=== PATIENT | male | born 1995 | race American Indian/Alaskan Native ===

== ENCOUNTER 2020-01-25 09:30 | Emergency (ER) | payer MEDICAID, OTHER ==
[2020-01-25] MEDS ORDERED: Sodium Chloride 0.9% 1,000 ML IV ONE (09:45)
[2020-01-25] MEDS ORDERED: Iopamidol 612 MG/ML 100 ML Bottle IVPUSH ONE (09:46)
--- NOTE | 2020-01-25 10:33 | EDM.PDOC ---
ED HPI GENERAL MEDICAL PROBLEM - General Time Seen by Provider: 01/25/20 10:15 Source of Information: Reports: Patient, EMS, EMS Notes Reviewed, RN, RN Notes Reviewed History Limitations: Reports: No Limitations - History of Present Illness INITIAL COMMENTS - FREE TEXT/NARRATIVE: Patient presents to ER per [place] ambulance service from [facility]. Patient states he began having right lower quadrant pain on . States at that time he also had a fever of 102. Describes the pain as sharp and stabbing, aching around to the right side of the back. Denies any urinary symptoms. Denies vomiting or diarrhea, states he has had some slight nausea from time to time. Pain with walking, laying down, movement in general. Patient has taken Aleve for the pain. Again states he had a fever , but has not had a fever since then but states he has had the chills. Patient states yesterday his abdomen began feeling more hard. Denies any recent illness cough or congestion. Patient states he did call the hospital over the weekend and they instructed him to take MiraLAX. He states he did use MiraLAX and has had 2 bowel movements since, no relief of pain. Decreased appetite, and nothing to eat today. States he has been trying to take fluids in. Patient rates pain 6- 7/10. Denies any drug or alcohol use. States he does still have his appendix. Onset: Gradual Onset Date: 01/21/20 Bilateral Lower Abdomen Pain Score (Numeric/FACES): 7 - Related Data Allergies Allergy/AdvReac Type Severity Reaction Status Date / Time No Known Allergies Allergy Verified 01/25/20 10:41 Home Meds: Home Meds . [No Known Home Meds] 01/25/20 [History] ED ROS GENERAL - Review of Systems Review Of Systems: Comprehensive ROS is negative, except as noted in HPI. ED EXAM, GI/ABD - Physical Exam Exam: See Below Exam Limited By: No Limitations General Appearance: Alert, WD/WN, Moderate Distress Eyes: Bilateral: Normal Appearance, EOMI Ears: Normal External Exam, Hearing Grossly Normal Nose: Normal Inspection Throat/Mouth: Normal Inspection, Normal Voice, No Airway Compromise Head: Atraumatic, Normocephalic Neck: Normal Inspection, Supple, Non-Tender, Full Range of Motion Respiratory/Chest: No Respiratory Distress, Lungs Clear, Normal Breath Sounds, No Accessory Muscle Use, Chest Non-Tender Cardiovascular: Normal Peripheral Pulses, Regular Rate, Rhythm, No Edema, No Gallop, No JVD, No Murmur, No Rub GI/Abdominal Exam: Normal Bowel Sounds, Guarding, Rigid, Rebound, Tender (RLQ) (Male) Exam: Deferred Rectal (Males) Exam: Deferred Back Exam: Normal Inspection, Full Range of Motion, CVA Tenderness (R) Extremities: Normal Inspection, Normal Range of Motion, Non-Tender, Normal Capillary Refill, No Pedal Edema Neurological: Alert, Oriented, CN II-XII Intact, Normal Cognition, Normal Gait, Normal Reflexes, No Motor/Sensory Deficits Psychiatric: Normal Affect, Normal Mood Skin Exam: Warm, Dry, Intact, Normal Color, No Rash Lymphatic: No Adenopathy Course - Vital Signs Last Recorded V/S: Last Vital Signs Temp 97.6 F 01/25/20 11:30 Pulse 71 01/25/20 11:30 Resp 18 01/25/20 11:30 BP 110/56 L 01/25/20 11:30 Pulse Ox 100 01/25/20 11:30 - Orders/Labs/Meds Orders: Active Orders 24 hr Category Date Time Status CULTURE BLOOD [BC] Stat Lab 01/25/20 10:28 Received CULTURE BLOOD [BC] Stat Lab 01/25/20 10:56 Received fentaNYL [Sublimaze] Med 01/25/20 12:18 Once 50 mcg IVPUSH ONETIME ONE Blood Culture x2 Reflex Set [OM.PC] Stat Oth 01/25/20 09:45 Ordered Medication Orders Fentanyl (Sublimaze) 50 mcg IVPUSH ONETIME ONE Stop: 01/25/20 12:19 Labs: Laboratory Tests 01/25/20 01/25/20 01/25/20 Range/Units 10:28 10:28 10:28 WBC 29.5 H* (5.0-10.0) 10^3/uL RBC 4.37 L (4.6-6.2) 10^6/uL Hgb 13.0 L D (14.0-18.0) g/dL Hct 36.1 L (40.0-54.0) % MCV 82.6 D (80-100) fL MCH 29.7 (27.0-34.0) pg MCHC 36.0 H (33.0-35.0) g/dL Plt Count 282 (150-450) 10^3/uL Neut % (Auto) 89.9 H (42.2-75.2) % Lymph % (Auto) 3.7 L (20.5-50.1) % [place] % (Auto) 6.3 (2-8) % Eos % (Auto) 0.0 L (1.0-3.0) % Baso % (Auto) 0.1 (0.0-1.0) % Add Manual Diff Yes Neutrophils % (Manual) 64 (42-75) % Band Neutrophils % 30 % Lymphocytes % (Manual) 1 L (20-50) % Monocytes % (Manual) 5 (2-8) % Sodium 136 (136-145) mmol/L Potassium 3.4 L (3.5-5.1) mmol/L Chloride 99 (98-107) mmol/L Carbon Dioxide 27 (21-32) mmol/L Anion Gap 13.4 H (7-13) mEq/L BUN 18 (7-18) mg/dL Creatinine 1.06 (0.70-1.30) mg/dL Est Cr Clr Drug Dosing 96.78 mL/min Estimated GFR (MDRD) > 60 BUN/Creatinine Ratio 17.0 (No establ ref range) Glucose 107 H (74-99) mg/dL Lactic Acid 1.5 (0.4-2.0) mmol/L Calcium 8.4 L (8.5-10.1) mg/dL Total Bilirubin 1.3 H (0.2-1.0) mg/dL AST 17 (15-37) U/L ALT 30 (16-63) U/L Alkaline Phosphatase 121 H (46-116) U/L Total Protein 7.1 (6.4-8.2) g/dL Albumin 3.1 L (3.4-5.0) g/dL Globulin 4.0 Albumin/Globulin Ratio 0.78 Amylase 26 (25-115) U/L Lipase 60 L (73-393) U/L Urine Color (YELLOW) Urine Appearance (CLEAR) Urine pH (5.0-9.0) Ur Specific Young (1.005-1.030) Urine Protein (NEGATIVE) Urine Glucose (UA) (NEGATIVE) Urine Ketones (NEGATIVE) Urine Occult Blood (NEGATIVE) Urine Nitrite (NEGATIVE) Urine Bilirubin (NEGATIVE) Urine Urobilinogen (0.2-1.0) mg/dL Ur Leukocyte Esterase (NEGATIVE) Urine RBC /HPF Urine WBC (0-5/HPF) /HPF Ur Epithelial Cells (NOT SEEN) /HPF Urine Mucus (NOT SEEN) /LPF Urine Opiates Screen (NEGATIVE) Ur Oxycodone Screen (NEGATIVE) Urine Methadone Screen (NEGATIVE) Ur Barbiturates Screen (NEGATIVE) U Tricyclic Antidepress (NEGATIVE) Ur Phencyclidine Scrn (NEGATIVE) Ur Amphetamine Screen (NEGATIVE) U Methamphetamines Scrn (NEGATIVE) Urine MDMA Screen (NEGATIVE) U Benzodiazepines Scrn (NEGATIVE) Urine Cocaine Screen (NEGATIVE) U Marijuana (THC) Screen (NEGATIVE) 01/25/20 01/25/20 Range/Units 10:49 10:49 WBC (5.0-10.0) 10^3/uL RBC (4.6-6.2) 10^6/uL Hgb (14.0-18.0) g/dL Hct (40.0-54.0) % MCV (80-100) fL MCH (27.0-34.0) pg MCHC (33.0-35.0) g/dL Plt Count (150-450) 10^3/uL Neut % (Auto) (42.2-75.2) % Lymph % (Auto) (20.5-50.1) % [place] % (Auto) (2-8) % Eos % (Auto) (1.0-3.0) % Baso % (Auto) (0.0-1.0) % Add Manual Diff Neutrophils % (Manual) (42-75) % Band Neutrophils % % Lymphocytes % (Manual) (20-50) % Monocytes % (Manual) (2-8) % Sodium (136-145) mmol/L Potassium (3.5-5.1) mmol/L Chloride (98-107) mmol/L Carbon Dioxide (21-32) mmol/L Anion Gap (7-13) mEq/L BUN (7-18) mg/dL Creatinine (0.70-1.30) mg/dL Est Cr Clr Drug Dosing mL/min Estimated GFR (MDRD) BUN/Creatinine Ratio (No establ ref range) Glucose (74-99) mg/dL Lactic Acid (0.4-2.0) mmol/L Calcium (8.5-10.1) mg/dL Total Bilirubin (0.2-1.0) mg/dL AST (15-37) U/L ALT (16-63) U/L Alkaline Phosphatase (46-116) U/L Total Protein (6.4-8.2) g/dL Albumin (3.4-5.0) g/dL Globulin Albumin/Globulin Ratio Amylase (25-115) U/L Lipase (73-393) U/L Urine Color Dark yellow (YELLOW) Urine Appearance Clear (CLEAR) Urine pH 6.0 (5.0-9.0) Ur Specific Young 1.020 (1.005-1.030) Urine Protein Negative (NEGATIVE) Urine Glucose (UA) Negative (NEGATIVE) Urine Ketones 15 H (NEGATIVE) Urine Occult Blood Trace-intact H (NEGATIVE) Urine Nitrite Negative (NEGATIVE) Urine Bilirubin Negative (NEGATIVE) Urine Urobilinogen 4.0 H (0.2-1.0) mg/dL Ur Leukocyte Esterase Negative (NEGATIVE) Urine RBC 0-5 /HPF Urine WBC 0-5 (0-5/HPF) /HPF Ur Epithelial Cells Few (NOT SEEN) /HPF Urine Mucus Few H (NOT SEEN) /LPF Urine Opiates Screen Negative (NEGATIVE) Ur Oxycodone Screen Negative (NEGATIVE) Urine Methadone Screen Negative (NEGATIVE) Ur Barbiturates Screen Negative (NEGATIVE) U Tricyclic Antidepress Negative (NEGATIVE) Ur Phencyclidine Scrn Negative (NEGATIVE) Ur Amphetamine Screen Negative (NEGATIVE) U Methamphetamines Scrn Negative (NEGATIVE) Urine MDMA Screen Negative (NEGATIVE) U Benzodiazepines Scrn Negative (NEGATIVE) Urine Cocaine Screen Negative (NEGATIVE) U Marijuana (THC) Screen Positive H (NEGATIVE) Meds: Medications Generic Name Dose Route Start Last Admin Trade Name Freq PRN Reason Stop Dose Admin Fentanyl 50 mcg 01/25/20 12:18 Sublimaze IVPUSH 01/25/20 12:19 ONETIME ONE Discontinued Medications Generic Name Dose Route Start Last Admin Trade Name Freq PRN Reason Stop Dose Admin Fentanyl 50 mcg 01/25/20 11:17 01/25/20 11:26 Sublimaze IVPUSH 01/25/20 11:18 50 mcg ONETIME ONE Administration Sodium Chloride 1,000 mls @ 999 mls/hr 01/25/20 09:45 01/25/20 10:42 Normal Saline IV 01/25/20 10:45 999 mls/hr .BOLUS ONE Administration Piperacillin Sod/Tazobactam 100 mls @ 200 mls/hr 01/25/20 11:28 01/25/20 11:36 Sod 3.375 gm/ Sodium Chloride IV 01/25/20 11:57 200 mls/hr ONETIME ONE Administration Iopamidol 100 ml 01/25/20 09:46 01/25/20 10:39 Isovue-300 (61%) IVPUSH 01/25/20 09:47 75 ml ONETIME ONE Administration - Re-Assessments/Exams Free Text/Narrative Re-Assessment/Exam: 01/25/20 12:05 Discussed patient case with Dr. Hardy who agreed to accept the patient for transfer to [facility]. Departure - Departure Time of Disposition: 12:45 Disposition: DC/Tfer to [facility] 02 Condition: Fair Clinical Impression: Enterocolitis Abdominal pain Qualifiers: Abdominal location: right lower quadrant Qualified Code(s): R10.31 - Right lower quadrant pain Appendicitis Qualifiers: Appendicitis type: acute appendicitis Acute appendicitis type: unspecified acute appendicitis type Qualified Code(s): K35.80 - Unspecified acute appendicitis - Discharge Information *PRESCRIPTION DRUG MONITORING PROGRAM REVIEWED*: No *COPY OF PRESCRIPTION DRUG MONITORING REPORT IN PATIENT TOBIN: No Forms: ED Department Discharge, Interfacility Transfer [facility] Sepsis Event Note (ED) - Focused Exam Vital Signs: Vital Signs Temp Pulse Resp BP Pulse Ox 01/25/20 11:30 97.6 F 71 18 110/56 L 100 01/25/20 10:18 98.2 F 91 18 113/59 L 100 - My Orders Last 24 Hours: My Active Orders 01/25/20 09:45 Blood Culture x2 Reflex Set [OM.PC] Stat 01/25/20 10:28 CULTURE BLOOD [BC] Stat 01/25/20 10:56 CULTURE BLOOD [BC] Stat 01/25/20 12:18 fentaNYL [Sublimaze] 50 mcg IVPUSH ONETIME ONE - Assessment/Plan Last 24 Hours: My Active Orders 01/25/20 09:45 Blood Culture x2 Reflex Set [OM.PC] Stat 01/25/20 10:28 CULTURE BLOOD [BC] Stat 01/25/20 10:56 CULTURE BLOOD [BC] Stat 01/25/20 12:18 fentaNYL [Sublimaze] 50 mcg IVPUSH ONETIME ONE
[2020-01-25] MEDS ORDERED: fentaNYL 100 MCG/2 ML SDV IVPUSH ONE ×2 (11:17→12:18)
[2020-01-25 11:28] LABS: ANION GAP 13.4 mEq/L (7-13); CHLORIDE,CL 99 mmol/L (98-107); SODIUM,NA 136 mmol/L (136-145)
[2020-01-25] MEDS ORDERED: Piperacillin/Tazobactam 3.375 GM in Sodium Chloride 0.9% 100 ML IV ONE (11:28)
--- NOTE | 2020-01-25 11:46 | CT ---
PROCEDURE INFORMATION: Exam: CT Abdomen And Pelvis With Contrast Exam date and time: 01/25/2020 10:33 AM Age: 24 years old Clinical indication: Abdominal pain; Localized; Right lower quadrant (rlq); Additional info: R/O appy TECHNIQUE: Imaging protocol: Computed tomography of the abdomen and pelvis with intravenous contrast. Radiation optimization: All CT scans at this facility use at least one of these dose optimization techniques: automated exposure control; mA and/or kV adjustment per patient size (includes targeted exams where dose is matched to clinical indication); or iterative reconstruction. Contrast material: ISOVUE 300; Contrast volume: 75 ml; Contrast route: INTRAVENOUS (IV); COMPARISON: CT Chest Abdomen Pelvis wo Cont 04/06/2014 10:36 PM FINDINGS: Lungs: Included lung bases are clear. Liver: Normal. No mass. Gallbladder and bile ducts: The gallbladder is relatively contracted. No biliary ductal dilatation is seen. Pancreas: Normal. No ductal dilation. Spleen: Normal. No splenomegaly. Adrenals: Normal. No mass. Kidneys and ureters: Normal. No hydronephrosis. Stomach and bowel: There are multiple fluid-filled small bowel loops in the left abdomen which are not dilated. Fluid mildly distends the right colon. Findings may reflect a mild enterocolitis. No bowel obstruction. Appendix: The distal appendix is slightly dilated at 7 mm, and the appendiceal tip is obscured by adjacent trace fluid. However, there is no fat stranding or fluid along the longer extent of the appendix more proximally. It is difficult to completely exclude early appendicitis, but findings are not definitive. Intraperitoneal space: The descending duodenum is mildly distended with air-fluid level, with wall thickening, adjacent fat stranding, and small amount of adjacent free fluid. This fluid and fat stranding obliterates the fat plane between the duodenum and abdominal aorta. There also adjacent small periaortic lymph nodes which are likely reactive. Overall, findings suggest peptic ulcer disease. While adjacent free fluid could reflect a perforated ulcer, there is no free air to confirm a perforated viscus. Additional small amount of fluid in Almazan's pouch and the right pericolic gutter, as well as the right posterosuperior pelvis at the L5-S1 level. Vasculature: Unremarkable. No abdominal aortic aneurysm. Lymph nodes: See "Intraperitoneal space" finding. Bladder: Unremarkable as visualized. Reproductive: Unremarkable as visualized. Bones/joints: No acute osseous abnormality. Prior left sacral fracture has healed. Stable 7 mm sclerotic lesion in the left ilium, likely a bone island Soft tissues: Unremarkable. IMPRESSION: 1. Wall thickening and mild distension of the duodenum, with adjacent fluid and fat stranding which obliterates the fat plane between the duodenum and abdominal aorta, with probable small adjacent reactive lymph nodes. Findings suggest peptic ulcer disease. Free fluid could reflect a perforated ulcer, but there is no free air to confirm a perforated viscus. Additional small amount of presumed associated fluid in Almazan's pouch, the right paracolic gutter, and right posterosuperior pelvis. No evidence of drainable abscess. 2. Findings suggesting mild enterocolitis. 3. Slightly dilated distal appendix at 7 mm, with appendiceal tip partially obscured by adjacent trace fluid. However, the more proximal appendix is normal in appearance. Although it is difficult to exclude early appendicitis, particularly distal tip appendicitis, findings are not definitive for appendicitis.
[2020-01-25] MEDS ORDERED: Lactated Ringers 1,000 ML IV ONE (12:38)
== END 2020-01-25 13:05 ==
LOC: DL.ED 09:30
DX: K52.9 Noninfective gastroenteritis and colitis, unspecified (principal); K35.80 Unspecified acute appendicitis
CPT/HCPCS: 36415; 74177; 80053; 80305; 81001; 82150; 83605; 83690; 85025; 87040; 96361; 96365; 96375; 96376; 99285; J2543; J3010; J7030; J7050; J7120; Q9967; 99284

== ENCOUNTER 2020-05-10 23:44 | Emergency (ER) | payer MEDICAID, OTHER ==
[2020-05-11] MEDS ORDERED: Iopamidol 612 MG/ML 100 ML Bottle IVPUSH ONE (00:08)
[2020-05-11 00:39] LABS: ANION GAP 13.5 mEq/L (7-13); CHLORIDE,CL 101 mmol/L (98-107); SODIUM,NA 138 mmol/L (136-145)
--- NOTE | 2020-05-11 02:12 | CT ---
PROCEDURE INFORMATION: Exam: CT Abdomen And Pelvis With Contrast Exam date and time: 05/11/2020 1:26 AM Age: 24 years old Clinical indication: Right lower quadrant cellulitis. Evaluate for abscess. TECHNIQUE: Imaging protocol: Computed tomography of the abdomen and pelvis with intravenous contrast. Radiation optimization: All CT scans at this facility use at least one of these dose optimization techniques: automated exposure control; mA and/or kV adjustment per patient size (includes targeted exams where dose is matched to clinical indication); or iterative reconstruction. Contrast material: ISOVUE 300; Contrast volume: 75 ml; Contrast route: INTRAVENOUS (IV); COMPARISON: CT Abdomen Pelvis w Cont 01/25/2020 10:33 AM FINDINGS: Lung bases are clear. Solid abdominal organs are unremarkable. The gallbladder is collapsed. No radiopaque gallstones or biliary ductal dilatation. Stool filled not significantly distended colon. Surgical change is present at the cecal apex and the appendix is not identified reflecting interval appendectomy. Bowel is otherwise unremarkable. The abdominal aorta is unremarkable without aneurysm or dissection. No abdominal or pelvic lymphadenopathy. The urinary bladder is largely collapsed and is otherwise unremarkable. No free intraperitoneal air or fluid. Soft tissue swelling/stranding is present in the subcutaneous fat of the right lower lateral and anterior abdominal wall. No localized fluid collection or soft tissue gas is present amongst this area. Osseous structures are intact. IMPRESSION: 1. Soft tissue swelling/stranding in the subcutaneous fat of the right abdominal wall which suggest inflammatory change/cellulitis. No fluid collection amongst this area to suggest abscess. 2. Interval appendectomy. 3. No acute intra-abdominal findings.
[2020-05-11] MEDS ORDERED: Mupirocin Oint 22 GM Tube ONE (02:20)
--- NOTE | 2020-05-11 02:20 | EDM.PDOC ---
ED HPI GENERAL MEDICAL PROBLEM - General Chief Complaint: Skin Complaint Stated Complaint: RIGHT HIP ITS SCRAPPED, INFECTED Time Seen by Provider: 05/10/20 23:55 Source of Information: Reports: Patient History Limitations: Reports: No Limitations - History of Present Illness INITIAL COMMENTS - FREE TEXT/NARRATIVE: ED ambulatory with c/o scrapping hip /abdomen on gravel while sledding this weekend. Increased redness today and more drainage from wound. No fever or chills. No hx of prior skin infections. No nausea or vomiting Treatments SUBSTANCE ABUSE COUNSELOR: Reports: NSAIDS Right Hip Pain Score (Numeric/FACES): 4 - Related Data Allergies Allergy/AdvReac Type Severity Reaction Status Date / Time No Known Allergies Allergy Verified 05/11/20 00:42 Home Meds: Home Meds . [No Known Home Meds] 01/25/20 [History] Past Medical History HEENT History: Reports: None Cardiovascular History: Reports: None Respiratory History: Reports: None Gastrointestinal History: Reports: None Genitourinary History: Reports: None Musculoskeletal History: Reports: Fracture, Other (See Below) Other Musculoskeletal History: left arm and pelvic fx Neurological History: Reports: None Psychiatric History: Reports: None Endocrine/Metabolic History: Reports: None Hematologic History: Reports: None Immunologic History: Reports: None Oncologic (Cancer) History: Reports: None Dermatologic History: Reports: None - Infectious Disease History Infectious Disease History: Reports: None - Past Surgical History Head Surgeries/Procedures: Reports: None HEENT Surgical History: Reports: Other (See Below) Other HEENT Surgeries/Procedures: jaw wired shut Social & Family History - Family History Family Medical History: No Pertinent Family History - Tobacco Use Tobacco Use Status *Q: Current Status Unknown Second Hand Smoke Exposure: No - Caffeine Use Caffeine Use: Reports: Soda - Recreational Drug Use Recreational Drug Use: No ED ROS GENERAL - Review of Systems Review Of Systems: Comprehensive ROS is negative, except as noted in HPI. ED EXAM, SKIN/RASH Exam: See Below Exam Limited By: No Limitations General Appearance: Alert, Mild Distress Eye Exam: Bilateral Eye: EOMI Ears: Normal External Exam Nose: Normal Inspection Throat/Mouth: Normal Inspection Head: Atraumatic, Normocephalic Neck: Normal Inspection Respiratory/Chest: No Respiratory Distress, Lungs Clear, Normal Breath Sounds Cardiovascular: Normal Peripheral Pulses, Regular Rate, Rhythm GI/Abdominal: Normal Bowel Sounds, Soft Extremities: Normal Inspection Neurological: Alert, Oriented, Normal Cognition Skin: Warm, Erythema, Wound/Incision (1.5cm open wound/ greenish center 15 x 10cm surrounding erythemaous area RLQ) Associated features: Warmth, Tenderness, Induration Course - Vital Signs Last Recorded V/S: Last Vital Signs Temp 97.6 F 05/11/20 02:08 Pulse 71 05/11/20 02:08 Resp 15 05/11/20 02:08 BP 116/63 05/11/20 02:08 Pulse Ox 99 05/11/20 02:08 - Orders/Labs/Meds Orders: Active Orders 24 hr Category Date Time Status CULTURE BLOOD [BC] Stat Lab 05/11/20 00:13 Received CULTURE WOUND [RM] Stat Lab 05/11/20 00:00 Received Labs: Laboratory Tests 05/11/20 05/11/20 05/11/20 Range/Units 00:13 00:13 00:13 WBC 7.9 (5.0-10.0) 10^3/uL RBC 4.20 L (4.6-6.2) 10^6/uL Hgb 12.3 L (14.0-18.0) g/dL Hct 34.8 L (40.0-54.0) % MCV 82.9 (80-100) fL MCH 29.3 (27.0-34.0) pg MCHC 35.3 H (33.0-35.0) g/dL Plt Count 281 (150-450) 10^3/uL Neut % (Auto) 66.8 (42.2-75.2) % Lymph % (Auto) 17.9 L (20.5-50.1) % [place] % (Auto) 8.0 (2-8) % Eos % (Auto) 7.2 H (1.0-3.0) % Baso % (Auto) 0.1 (0.0-1.0) % Sodium 138 (136-145) mmol/L Potassium 3.5 (3.5-5.1) mmol/L Chloride 101 (98-107) mmol/L Carbon Dioxide 27 (21-32) mmol/L Anion Gap 13.5 H (7-13) mEq/L BUN 22 H (7-18) mg/dL Creatinine 0.81 (0.70-1.30) mg/dL Est Cr Clr Drug Dosing TNP Estimated GFR (MDRD) > 60 BUN/Creatinine Ratio 27.2 (No establ ref range) Glucose 110 H (74-99) mg/dL Lactic Acid 0.6 (0.4-2.0) mmol/L Calcium 8.4 L (8.5-10.1) mg/dL Total Bilirubin 0.2 (0.2-1.0) mg/dL AST 17 (15-37) U/L ALT 37 (16-63) U/L Alkaline Phosphatase 124 H (46-116) U/L Total Protein 6.9 (6.4-8.2) g/dL Albumin 3.3 L (3.4-5.0) g/dL Globulin 3.6 Albumin/Globulin Ratio 0.92 Meds: Medications Discontinued Medications Generic Name Dose Route Start Last Admin Trade Name Freq PRN Reason Stop Dose Admin Vancomycin HCl 1,000 mg/ 250 mls @ 166.667 mls/hr 05/11/20 00:10 05/11/20 00:26 Sodium Chloride IV 05/11/20 01:39 166.667 mls/hr ONETIME ONE Administration Iopamidol 100 ml 05/11/20 00:08 05/11/20 01:42 Isovue-300 (61%) IVPUSH 05/11/20 00:09 75 ml ONETIME ONE Administration Mupirocin Confirm 05/11/20 02:20 05/11/20 02:24 Bactroban Oint Administered 05/11/20 02:21 Not Given Dose 22 gm .ROUTE .STK-MED ONE Departure - Departure Time of Disposition: 02:19 Disposition: Home, Self-Care 01 Condition: Good Clinical Impression: Cellulitis Qualifiers: Site of cellulitis: trunk Site of cellulitis of trunk: abdominal wall Qualified Code(s): L03.311 - Cellulitis of abdominal wall - Discharge Information *PRESCRIPTION DRUG MONITORING PROGRAM REVIEWED*: No *COPY OF PRESCRIPTION DRUG MONITORING REPORT IN PATIENT TOBIN: No Instructions: Cellulitis, Adult Forms: ED Department Discharge Additional Instructions: increase fluids alternate tylenol and ibuprofen every 4 hours as needed for discomfort keflex 500mg one three times daily for 10 days bactrim DS one twice daily for one week clinic Recheck . mupriocin ointment 3 times daily to wound until healed. Sepsis Event Note (ED) - Evaluation Sepsis Screening Result: No Definite Risk - Focused Exam Vital Signs: Vital Signs Temp Pulse Resp BP Pulse Ox 05/11/20 02:08 97.6 F 71 15 116/63 99 05/10/20 23:50 98.3 F 84 18 127/87 99 - My Orders Last 24 Hours: My Active Orders 05/11/20 00:00 CULTURE WOUND [RM] Stat 05/11/20 00:13 CULTURE BLOOD [BC] Stat - Assessment/Plan Last 24 Hours: My Active Orders 05/11/20 00:00 CULTURE WOUND [RM] Stat 05/11/20 00:13 CULTURE BLOOD [BC] Stat
== END 2020-05-11 02:32 | disposition home or self-care (01) ==
LOC: DL.ED 23:44
DX: L03.311 Cellulitis of abdominal wall (principal)
CPT/HCPCS: 36415; 74177; 80053; 83605; 85025; 87040; 87070; 87077; 96365; 96366; 99283; 99284-25; A9270-GY; J3370; J7050; Q9967

== ENCOUNTER 2020-11-27 07:29 | Emergency (ER) | payer OTHER, MEDICAID ==
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
[2020-11-27] MEDS ORDERED: Iopamidol 612 MG/ML 100 ML Bottle IVPUSH ONE (07:48)
[2020-11-27 08:25] LABS: ANION GAP 19.9 mEq/L (7-13); CHLORIDE,CL 107 mmol/L (98-107); SODIUM,NA 147 mmol/L (136-145)
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
== END 2020-11-27 09:26 | disposition home or self-care (01) ==
LOC: DL.ED 07:29
DX: S20.212A Contusion of left front wall of thorax, initial encounter (principal); F10.120 Alcohol abuse with intoxication, uncomplicated; Y90.7 Blood alcohol level of 200-239 mg/100 ml; V47.5XXA Car driver injured in collision with fixed or stationary object in traffic accident, initial encounter
CPT/HCPCS: 36415; 70450; 71260; 72125; 74177; 80053; 80307; 85025; 99284; Q9967

== ENCOUNTER 2020-12-24 06:50 | Emergency (ER) | payer MEDICAID ==
[2020-12-24 07:44] LABS: ANION GAP 18.5 mEq/L (7-13); CHLORIDE,CL 103 mmol/L (98-107); SODIUM,NA 142 mmol/L (136-145)
[2020-12-24] MEDS ORDERED: ceFAZolin 1 GM in Sodium Chloride 0.9% 50 ML IV ONE (07:59)
[2020-12-24] MEDS ORDERED: Diphtheria,Pertussis(Acell),Tetanus Vaccine 0.5 ML Syringe IM ONE (07:59)
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
== END 2020-12-24 08:23 ==
LOC: DL.ED 06:50
DX: S61.230A Puncture wound without foreign body of right index finger without damage to nail, initial encounter (principal); F10.129 Alcohol abuse with intoxication, unspecified; Z23 Encounter for immunization; W34.00XA Accidental discharge from unspecified firearms or gun, initial encounter; Y90.7 Blood alcohol level of 200-239 mg/100 ml
CPT/HCPCS: 36415; 73130; 80053; 80307; 85025; 90471; 90715; 96374; 99285; J0690